=== PATIENT | female | born 1960 | race Two or more races ===

== ENCOUNTER 2021-07-20 19:40 | Inpatient (IN) | payer MEDICAID ==
[~2021-07-20] VITALS: Ht 167.6 cm; Wt 71.7 kg
--- NOTE | 2021-07-20 20:00 | NUR ---
Pt kristan RA from home. Pts. caregiver observed seizure which they described as shaking activity. Pt. family called ems. Pt was post-ictal on arrival. Her baseline is aox2, she was aox1. While with EMS pt. had a second seizure. They gave her 5mg IM Versed and placed her on a nonrebreather 100% oxygen. Pt. is north korean speaking only. Pts. family is on the way.
[2021-07-20] MEDS ORDERED: LORA-258 PO (20:37)
[2021-07-20] MEDS ORDERED: PHEN100C4 PO (20:37)
[2021-07-20] MEDS ORDERED: ATOR10TA PO (20:37)
[2021-07-20] MEDS ORDERED: LEVO25TA2 PO (20:40)
[2021-07-20] MEDS ORDERED: METO25TA6 PO (20:40)
[2021-07-20 20:43] LABS: HEMATOCRIT 32.8 % (31.2-41.9); MEAN CORPUSCULAR HEMOGLOBIN 31.5 uug (24.7-32.8); MEAN CORPUSCULAR VOLUME 93.9 fL (75.5-95.3); PLATELET COUNT (AUTO) 209 K/uL (179-408)
[2021-07-20 20:54] LABS: ETHANOL < 3 MG/DL (0-0)
--- NOTE | 2021-07-20 21:00 | NUR ---
Spoke with Pts. daughter and son in law on the phone. 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 One Nov 2020 and the second March 2021. The patient had her first seizure in March 2021 during her hospitalization after her surgery. She had another seizure in February 2021, and the last seziure prior to today's was May 2021. She was taken to [facility] after the seizure in May and they ruled out any anyeurism or stroke, then she was discharged to follow up with a neurologist. 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 [place] [facility] [place]. family reports the marketing administrator wanst to urgently do surgery for the leaky valves. Pt also has hx of anemia. The patient's family states she is a Judaism and does not want any blood products or transfusions.
[2021-07-20 21:01] LABS: CARBON DIOXIDE 30 mmol/L (21-32); CHLORIDE 108 mmol/L (98-107); CREATININE 0.8 mg/dL (0.6-1.3); GLUCOSE 95 mg/dL (74-106); POTASSIUM 3.8 mmol/L (3.5-5.1); UREA NITROGEN, BLOOD 15 mg/dL (7-18)
[2021-07-20 21:05] LABS: ALANINE AMINOTRANSFERASE 24 U/L (14-59); ALKALINE PHOSPHATASE 78 U/L (50-136); ASPARTATE AMINOTRANSFERASE 19 U/L (15-37); BILIRUBIN,DIRECT 0.1 mg/dL (0.0-0.2); BILIRUBIN,TOTAL 0.3 mg/dL (0.2-1.0); TOTAL PROTEIN, SERUM 6.5 g/dL (6.4-8.2)
[2021-07-20] MEDS ORDERED: BUME2TAB7 PO (21:56)
[2021-07-20] MEDS ORDERED: LACO150T2 PO (21:56)
--- NOTE | 2021-07-20 22:18 | NUR ---
[facility] [place] [facility] [place] [phone] [facility] senior professional services consultant center nurse spoke to he requested clinicals to be faxed to: -FAX number -Patient will be tentatively telemetry level of care. -HIGHER LEVEL OF CARE TRANSFER PROCESS INITIATED per family request of pending heart surgery of patient and her insurance company stating that she couldn't be admitted here.
[2021-07-20] MEDS ORDERED: levETIRAcetam 500 MG/5 ML VIAL IV ONE (22:23)
[2021-07-20] MEDS ORDERED: levETIRAcetam IV 500 MG in IV DEXTROSE 5% 100 ML IV ONE (22:30)
[2021-07-20] MEDS ORDERED: levETIRAcetam IV 1,000 MG in IV DEXTROSE 5% 100 ML IV ONE (22:30)
[2021-07-20 22:56] LABS: *BILIRUBIN,URIN NEGATIVE (NEGATIVE); *CLARITY,URINE CLEAR (CLEAR); *COLOR,URINE PINK (YELLOW); *KETONES,URINE NEGATIVE (NEGATIVE); *UROBILINOGEN,URINE 0.2 E.U./dl (NORMAL); LEUKOCYTE ESTERASE ,URINE 1+ (NEGATIVE); NITRITE, URINE NEGATIVE (NEGATIVE); UGLUCOSE NEGATIVE (NEGATIVE)
[2021-07-20 23:18] LABS: *BLOOD, URINE TRACE (NEGATIVE); BACTERIA,URINE NONE SEEN /HPF (NONE SEEN); SQUAMOUS EPITHELIAL CELL,UR MODERATE /HPF (NONE SEEN)
[2021-07-20 23:21] LABS: *AMPHETAMINE, URINE NEGATIVE (NEGATIVE); *CANNABINOID, URINE NEGATIVE (NEGATIVE); *COCCAINE, URINE NEGATIVE (NEGATIVE); *OPIATE, URINE NEGATIVE (NEGATIVE); *PHENCYCLIDINE SCREEN,URINE NEGATIVE (NEGATIVE)
--- NOTE | 2021-07-21 01:14 | NUR ---
[facility] [place]. Insurance company states that [facility] has no beds to accomodate patient. Patient has been authorized to stay at [facility]. [facility] [employer] called, JACK mcnamara.
--- NOTE | 2021-07-21 01:17 | NUR ---
Patient will be assigned to telemetry room 304.
--- NOTE | 2021-07-21 01:23 | NUR ---
Fred mcnamara for patient admission. Family called and notified patient will be staying here and not transferred. Pt is resting in bed comfortably with eyes closed. No signs of distress. No changes in condition. Seizure precautions in place. Pt. aox2.
--- NOTE | 2021-07-21 01:25 | NUR ---
MD Gtz connected to hospitalist Fred Agudelo.
[2021-07-21] MEDS ORDERED: CEFTRIAXONE 1 G in IV DEXTROSE 5% 50 ML IV ONE (01:30)
--- NOTE | 2021-07-21 01:35 | NUR ---
Report given to LIZ January.
[2021-07-21] MEDS ORDERED: ACETAMINOPHEN 325 MG TABLET PO PRN (02:00)
[2021-07-21] MEDS ORDERED: ONDANSETRON 4 MG/2 ML VIAL IV PRN (02:00)
[2021-07-21] MEDS ORDERED: CEFTRIAXONE 1 G in IV DEXTROSE 5% 50 ML IV SCH (02:00)
[2021-07-21] MEDS ORDERED: HYDROCODONE/APAP 5-325MG TABLET PO PRN (02:00)
[2021-07-21] MEDS ORDERED: Z GUARD REMEDY PASTE 57 GM TUBE TOP PRN (02:00)
[2021-07-21] MEDS ORDERED: MAGNESIUM HYDROXIDE 30 ML LIQUID UDC PO PRN (02:00)
[2021-07-21] MEDS ORDERED: LORAZEPAM 2 MG/1 ML VIAL IV PRN (02:00)
[2021-07-21] MEDS ORDERED: CEFTRIAXONE /D5W 50ML IVPB **ER PYXIS IV ONE (02:04)
[2021-07-21] MEDS: ENOXAPARIN SODIUM 40 MG/0.4 ML DISP.SYRIN SQ SCH ×2 (02:11→20:27)
[2021-07-21] MEDS ORDERED: ENOXAPARIN SODIUM 40 MG/0.4 ML DISP.SYRIN SQ ONE (02:13)
[2021-07-21 02:30] VITALS: BP 96/32
--- NOTE | 2021-07-21 02:35 | NUR ---
ADMITTED PATIENT UNDER TELEMETRY VIA GURNEY, REPORT GIVEN BY LIZ ENGLE FROM ER. SHE IS ALERT/ORIENTEDX2, TURKMEN, UNDERSTANDS SIMPLE [place]. SKIN IS INTACT. ON ROOM AIR. BELONGINGS LIST SIGNED. ON SEIZURE PRECAUTION, PADDED SIDE OF THE BED FOR SAFETY. NO DISTRESS IDENTIFIED UPON ARRIVAL IN THE UNIT. WILL CONTINUE TO MONITOR.
[2021-07-21 04:00] VITALS: BP 95/48
--- NOTE | 2021-07-21 06:02 | NUR ---
PATIENT REMAINED STABLE DURING THE SHIFT, NO SEIZURE NOTED. DENIES ANY PAIN. MAINTAINED SAFETY PRECAUTION. DUE MEDS GIVEN. NEEDS ATTENDED. NO DISTRESS IDENTIFIED. WILL ENDORSE TO THE NEXT SHIFT FOR CONTINUITY OF CARE.
[2021-07-21] MEDS ORDERED: PANTOPRAZOLE SODIUM 40 MG TABLET.DR PO SCH (07:00)
--- NOTE | 2021-07-21 07:30 | NUR ---
RESTING COMFORTABLY IN BED NO SS OF PAIN OR SOB SR ON MONITOR, NO SEIZURE NOTED
[2021-07-21] MEDS: LACOSAMIDE 50 MG TABLET PO SCH ×2 (08:40→20:24)
[2021-07-21] MEDS ORDERED: LACOSAMIDE 50 MG TABLET PO SCH (09:00)
[2021-07-21] MEDS ORDERED: IV NS 1000 ML 1,000 ML IV PRN (12:00)
--- NOTE | 2021-07-21 12:00 | NUR ---
SEEN BY HOSPITALIST FOR FOLLOW-UP MADE AWARE OF LOW BLOOD BLOOD PRESSURE ON THE NINETIES. ORDER TO START ON IV NS 75 MLS/HR. OBSERVED
[2021-07-21 12:30] VITALS: BP 99/45
--- NOTE | 2021-07-21 15:20 | NUR ---
NO ACTIVE SEIZURE NOTED , REMAINS AWAKE ALERT AND ORIENTED X3. FAMILY AT BEDSIDE ALL SUPPORTIVE WITH CARE
[2021-07-21 15:25] VITALS: BP 98/48
--- NOTE | 2021-07-21 16:46 | NUR ---
director of casework department lizett called of bed availability at [facility], will notify hospitalist for orders
[2021-07-21] MEDS ORDERED: CEFT1FRO2 IV (16:50)
[2021-07-21] MEDS ORDERED: LACO50TA2 PO (16:50)
[2021-07-21] MEDS ORDERED: ENOX40DI SQ (16:50)
--- NOTE | 2021-07-21 19:00 | NUR ---
Received patient in bed, alert oriented, daughter at bed side, no complain of pain, tele monitor sinus rhythm, cont to monitor.
[2021-07-21 20:00] VITALS: BP 102/56
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
--- NOTE | 2021-07-21 22:10 | NUR ---
Daughter took all patient belongings.
== END 2021-07-21 22:00 | disposition short-term general hospital (02) | DRG 53 ==
LOC: ER 19:44 → TELE3 07-21 01:48
PROVIDERS: ADMIT Nurse Practitioner Acute Care; ATTEND Nurse Practitioner Acute Care
DX: R56.9 Unspecified convulsions (principal); E03.9 Hypothyroidism, unspecified; I69.198 Other sequelae of nontraumatic intracerebral hemorrhage; E78.5 Hyperlipidemia, unspecified; I10 Essential (primary) hypertension; I34.0 Nonrheumatic mitral (valve) insufficiency; Z98.890 Other specified postprocedural states; Z20.822 Contact with and (suspected) exposure to COVID-19; Z87.898 Personal history of other specified conditions
CPT/HCPCS: 36415; 70450; 85025; 87086; 93005; A4663; G0378; G0480; J0696; J1650; J1953; J7030; J7050; J7060